=== PATIENT | male | born 2000 | race Caucasian/White ===

== ENCOUNTER 2020-08-03 05:20 | Day surgery (SDC) | payer MEDICAID ==
[2020-07-26 15:43] LABS: BASOPHILS % (AUTO) 0.5 % (0-1); EOSINOPHILS # (AUTO) 0.1 X10'3 (0-0.9); EOSINOPHILS % (AUTO) 1.8 % (0-6); LYMPHOCYTES # (AUTO) 1.9 X10'3 (1.1-4.8); LYMPHOCYTES % (AUTO) 31.7 % (21-51); MEAN CORPUSCULAR HGB CONC 33.8 g/dL (33.0-36.5); MEAN CORPUSCULAR VOLUME 88.8 FL (78-98); MEAN PLATELET VOLUME 7.7 FL (7.4-10.4); MONOCYTES # (AUTO) 0.6 X10'3 (0-0.9); MONOCYTES % (AUTO) 9.8 % (2-12); NEUTROPHILS # (AUTO) 3.4 X10'3 (1.8-7.7); NEUTROPHILS % (AUTO) 56.2 % (42-75); PRE OP HEMATOCRIT 45.5 % (42.0-52.0); PRE OP HEMOGLOBIN 15.4 g/dL (14.0-17.9); PRE OP PLATELET COUNT 262 X10'3 (140-440); RED BLOOD COUNT 5.12 X10'6 (4.70-6.10); RED CELL DISTRIBUTION WIDTH 13.9 % (11.5-14.5)
[2020-07-26 15:59] LABS: ALBUMIN 4.7 G/DL (3.4-5.0); ALBUMIN/GLOBULIN RATIO 1.5 (1.1-1.5); ALKALINE PHOSPHATASE 43 IU/L (46-116); BLOOD UREA NITROGEN 10 MG/DL (7-18); BUN/CREATININE RATIO 7.9 (5.4-32.0); CALCIUM 9.6 MG/DL (8.5-10.1); CHLORIDE 104 MMOL/L (99-107); CREATININE 1.26 MG/DL (0.60-1.10); PRE OP ALT 22 U/L (30-65); PRE OP ANION GAP 8 (8-16); PRE OP AST 24 U/L (10-37); PRE OP BILIRUB, TOTAL 0.7 MG/DL (0.0-1.0); PRE OP GLUCOSE 93 MG/DL (70-104); PRE OP POTASSIUM 3.8 MMOL/L (3.4-5.1); PRE OP SODIUM 143 MMOL/L (135-145); TOTAL CARBON DIOXIDE 31.4 MMOL/L (24-32); TOTAL PROTEIN 7.9 G/DL (6.4-8.2); eGFR 72 ML/MIN
[~2020-08-03] VITALS: Ht 185.4 cm; Wt 72.5 kg
[2020-08-03] VITALS (25 sets, daily range): BP systolic 121–165; BP diastolic 70–103
[~2020-08-03 05:20] MED LIST: NO HOME MEDS; ringers solution, lacted 1,000 ML IV SCH
[2020-08-03] MEDS ORDERED: cefazolin/dext.iso 2gm/100ml IV ONE (05:30)
[2020-08-03] MEDS ORDERED: famotidine 20mg tablet PO ONE (05:30)
[2020-08-03 07:10] LABS: PRE OP INR 1.1 INR
[2020-08-03] MEDS ORDERED: midazolam 1 mg/ML 2ml injection ONE (07:16)
[2020-08-03] MEDS ORDERED: fentaNYL /PF 50mcg/ml 5ml ampule ONE (07:17)
[2020-08-03] MEDS ORDERED: rocuronium 10mg/ml inj IV ONE (07:19)
[2020-08-03] MEDS ORDERED: LIDOcaine 2% (20mg/ml) 5ml vial ONE (07:19)
[2020-08-03] MEDS ORDERED: propofol inj 20 ML IV ONE (07:19)
[2020-08-03] MEDS ORDERED: ringers solution, lacted 1,000 ML IV SCH (07:25)
[2020-08-03] MEDS ORDERED: ondansetron/PF 4mg/2ml inj IV PRN (07:25)
[2020-08-03] MEDS ORDERED: morphine 2 MG/ML inj. syringe IV PRN (07:25)
[2020-08-03] MEDS ORDERED: proCHLORperazine 10 MG/2 ml inj IV PRN (07:25)
[2020-08-03] MEDS ORDERED: morphine 4 MG/ML inj SYRINge IV PRN (07:25)
[2020-08-03] MEDS ORDERED: meperidine/PF 25mg/ml syringe IV PRN ×3 (07:25)
[2020-08-03] MEDS ORDERED: BUPIVAcaine 0.5% W/EPI /PF 30ml vial ONE (08:09)
[2020-08-03] MEDS ORDERED: dexamethasone sod phosphate 4mg/ml inj. ONE (10:32)
[2020-08-03] MEDS ORDERED: glycopyrrolate 0.2mg/ml inj ONE (10:32)
[2020-08-03] MEDS ORDERED: ondansetron/PF 4mg/2ml inj ONE (10:32)
[2020-08-03] MEDS ORDERED: acetaminophen 1,000mg/100ml IV 100 ML IV ONE (10:32)
[2020-08-03] MEDS ORDERED: neostigmine methylsulfate 1 MG/ML 10ml vial ONE (10:32)
[2020-08-03] MEDS ORDERED: furosemide 40mg/4ml inj ONE (11:02)
--- NOTE | 2020-08-03 11:33 | NUR ---
Received from OR via [facility] IN STABLE CONDITION , accompanied by Anesthesiologist and ASSISTANT THERAPY AIDE report given by Ishan. Addendum: 08/03/20 at 1209 by Gris Bronson RN Amended: Links added.
[2020-08-03] MEDS ORDERED: HYDROcodone/acetaminophen 5mg/325mg tablet PO PRN (11:50)
[2020-08-03] MEDS ORDERED: HYDROmorphone 1 mg/ml syringe IV PRN (11:50)
--- NOTE | 2020-08-03 13:53 | NUR ---
PATIENT TRANSFERRED TO ROOM IN STABLE CONDITION AFTER REPORT GIVEN TO MANPREET SADLER TAKING OVER PATIENTS CARE. PATIENT TRANSFERED TO FLOOR VIA [facility] MAHAJAN RN. Addendum: 08/03/20 at 1412 by Gris Bronson RN Amended: Links added.
[2020-08-03] MEDS: ondansetron/PF 4mg/2ml inj IV PRN (16:12)
[2020-08-03] MEDS: potassium cl 20mEq in 1/2 NS 1,000 ML IV SCH ×2 (16:13→19:50)
--- NOTE | 2020-08-03 17:59 | NUR ---
Patient's BP has been persistently elevated SBP 140's-160's, HR elevated low 100's to 130's, patient vomiting despite of Zofran has been given. Dilaudid IV not due yet at this time. I tried to call Dr. Villanueva's office number, answering service took my message for Dr. Villanueva. She said she will relay my message to Dr. Villanueva who is ammunition assembly ii laborer, she said to call back if no call back from Dr. Villanueva in 20 minutes. Addendum: 08/03/20 at 5064 by Klaus Gillis RN Received orders from Dr. Villanueva to give extra dose of Zofran 4mg IV and to increase Dilaudid 1mg IV to every 2 hours PRN
[2020-08-03] MEDS ORDERED: ondansetron/PF 4mg/2ml inj IV ONE (18:10)
[2020-08-03] MEDS: HYDROmorphone 1 mg/ml syringe IV PRN ×2 (18:12→21:13)
--- NOTE | 2020-08-03 18:53 | NUR ---
Problems reprioritized. Patient report given, questions answered & plan of care reviewed with Gilda SADLER.
--- NOTE | 2020-08-03 18:54 | NUR ---
Patient in room [facility]. I have received report from REMEDIOS SADLER and had the opportunity to ask questions and assume patient care.
[2020-08-04] VITALS: BP 116/72
[2020-08-04] MEDS: HYDROmorphone 1 mg/ml syringe IV PRN ×3 (00:40→07:45)
[2020-08-04] MEDS: potassium cl 20mEq in 1/2 NS 1,000 ML IV SCH ×2 (00:43→10:03)
[2020-08-04 05:54] LABS: BASOPHILS % (AUTO) 0.2 % (0-1); EOSINOPHILS % (AUTO) 0.1 % (0-6); HEMATOCRIT 40.3 % (42.0-52.0); HEMOGLOBIN 13.8 g/dl (14.0-17.9); LYMPHOCYTES # (AUTO) 1.6 X10'3 (1.1-4.8); MEAN CORPUSCULAR HEMOGLOBIN 30.4 PG (27.0-31.0); MEAN CORPUSCULAR HGB CONC 34.3 g/dL (33.0-36.5); MEAN CORPUSCULAR VOLUME 88.5 FL (78-98); MONOCYTES # (AUTO) 1.5 X10'3 (0-0.9); NEUTROPHILS # (AUTO) 8.5 X10'3 (1.8-7.7); NEUTROPHILS % (AUTO) 72.7 % (42-75); PLATELET COUNT 223 X10'3 (140-440); RED BLOOD COUNT 4.56 X10'6 (4.70-6.10); RED CELL DISTRIBUTION WIDTH 14.1 % (11.5-14.5); WHITE BLOOD COUNT 11.6 X10'3 (4.5-11.0)
[2020-08-04 06:06] LABS: ALBUMIN 3.8 G/DL (3.4-5.0); ANION GAP 9 (8-16); BLOOD UREA NITROGEN 13 MG/DL (7-18); BUN/CREATININE RATIO 10.6 (5.4-32.0); CHLORIDE 105 MMOL/L (99-107); CREATININE 1.23 MG/DL (0.60-1.10); GLUCOSE 104 MG/DL (70-104); POTASSIUM 3.9 MMOL/L (3.5-5.1); SODIUM 140 MMOL/L (135-145); TOTAL CARBON DIOXIDE 25.6 MMOL/L (24-32); eGFR 74 ML/MIN
--- NOTE | 2020-08-04 06:30 | NUR ---
Problems reprioritized. Patient report given, questions answered & plan of care reviewed with TATI SADLER.
[2020-08-04 07:40] VITALS: BP 120/88
[2020-08-04] MEDS: ondansetron/PF 4mg/2ml inj IV PRN (09:52)
[2020-08-04 11:00] VITALS: BP 165/92
[2020-08-04] MEDS: HYDROcodone/acetaminophen 5mg/325mg tablet PO PRN ×3 (11:20→19:35)
[2020-08-04] MEDS ORDERED: DOCU-148 PO (17:49)
[2020-08-04] MEDS ORDERED: HYDR-3965 PO (17:49)
--- NOTE | 2020-08-04 18:37 | NUR ---
Problems reprioritized. Patient report given, questions answered & plan of care reviewed with VIKTORIYA Santo.
[2020-08-04] MEDS ORDERED: ONDA4TAB12 PO (18:51)
[2020-08-04 19:00] VITALS: BP 141/92
--- NOTE | 2020-08-04 19:11 | NUR ---
Patient stable and appropriate for DC home. IV removed. All belongings taken from room. Pain medication RX was given to patient, all other meds were transmitted by MD. He has been instructed on schroeder catheter care, he was given day/leg and night bag. Also gave instructions on how to drain and care for GERARDO drain and how to record output for both of the drains. Patient returned demonstration and verbalized understanding of both. Explained to patient how to progress his diet at home according to MD orders. All discharge instructions and education given to patient, all questions answered. all demonstrations returned. Patient is awaiting a apple picking supervisor from his grandmother Amanda.
--- NOTE | 2020-08-04 19:37 | NUR ---
[place] given prior to d/c. Nurse monitored pt empting GERARDO drain and catheter bag prior to d/c. Pt assisted via w/c and all belongings accounted for per pt. Grandparents downstairs to drive pt home. Pt has script for pain medication and instructed to use [facility] as [facility] is closed at this time. Addendum: 08/04/20 at 1941 by Hansa Nguyen RN Amended: Links added.
[2020-08-05] MEDS ORDERED: docusate sod 250mg capsule PO SCH (08:00)
== END 2020-08-04 19:45 | disposition home or self-care (01) ==
LOC: PAS 05:20 → SUR 3N 11:47 → PAS 08-04 19:45
PROVIDERS: ATTEND Urology
DX: N13.0 Hydronephrosis with ureteropelvic junction obstruction (principal); N03.9 Chronic nephritic syndrome with unspecified morphologic changes; F17.290 Nicotine dependence, other tobacco product, uncomplicated; F41.9 Anxiety disorder, unspecified; Z20.822 Contact with and (suspected) exposure to COVID-19; Z79.01 Long term (current) use of anticoagulants; Z79.899 Other long term (current) drug therapy; Z98.890 Other specified postprocedural states; Z96.0 Presence of urogenital implants
CPT/HCPCS: 36415; 50544; 71046; 80048; 80053; 82948; 85025; 85610; 85730; 86885; 86900; 86901; 87081; C1758; C2617; J0131; J1100; J1170; J1940; J2001; J2250; J2405; J2704; J2710; J3010; J7030; J7120; U0003; U0005; A4215; A4618; A6402; A7000; G0378; J3480; J3490